=== PATIENT | male | born 1985 | race Caucasian/White ===

== ENCOUNTER 2017-06-05 13:18 | Emergency (ER) | payer OTHER ==
[2017-06-05 13:25] VITALS: BP 120/78; PULSE 81; RESP 20; TEMP 97.8; O2SAT 96
--- NOTE | 2017-06-05 14:06 | C.PDOC ---
History Of Present Illness 31-year-old male, presents to the emergency department with complaints of right sided jaw pain, after patients accidentally slammed the door on his face. Patient notes pain only when he chews his food. Denies nausea/vomiting, bleeding, dry mouth, dizziness, headache, neck pain, or any other associated symptoms. No other complaints at this time. Time Seen by Provider: 06/05/17 13:35 Chief Complaint (Nursing): Medical Clearance History Per: Patient History/Exam Limitations: no limitations Onset/Duration Of Symptoms: Days Past Medical History Reviewed: Historical Data, Nursing Documentation, Vital Signs Vital Signs: Last Vital Signs Temp 97.8 F 06/05/17 13:22 Pulse 81 06/05/17 13:22 Resp 20 06/05/17 13:22 BP 120/78 06/05/17 13:22 Pulse Ox 96 06/05/17 17:37 - Medical History PMH: No Chronic Diseases Family History: States: No Known Family Hx - Social History Hx Alcohol Use: No Hx Substance Use: No Review Of Systems Except As Marked, All Systems Reviewed And Found Negative. Constitutional: Negative for: Fever Cardiovascular: Negative for: Chest Pain Respiratory: Negative for: Shortness of Breath Gastrointestinal: Negative for: Nausea, Vomiting Musculoskeletal: Negative for: Neck Pain, Back Pain Physical Exam - Physical Exam Appears: Non-toxic, No Acute Distress Skin: Warm, Dry, No Rash Head: Atraumatic, Normacephalic, Other (Right TMJ tendernes, mild) Eye(s): bilateral: Normal Inspection, PERRL, EOMI Nose: Normal Oral Mucosa: Moist, No Trismus Tongue: Normal Appearing Lips: Normal Appearing Teeth: Normal Dentition, No Tender To Palpation, No Avulsed Throat: No Erythema, No Exudate Neck: Normal ROM, No Midline Cervical Tenderness, No Paracervical Tenderness, Supple Extremity: Normal ROM, No Tenderness, Capillary Refill (< 2 sec), No Swelling, Other (< 0.5cm superficial abrasion to the lateral left ankle ) Neurological/Psych: Oriented x3, Normal Speech, Normal Motor, Normal Sensation Gait: Steady ED Course And Treatment O2 Sat by Pulse Oximetry: 96 (on RA) Pulse Ox Interpretation: Normal Medical Decision Making Medical Decision Making: Plan: * Motrin * Reassess and Disposition Patient with normal exam, no need for diagnostic testing. On reassessment, patient is resting comfortably, and is in no acute distress. Patient was instructed to follow up with physician/clinic in 1-2 days for further evaluation. Disposition - Disposition Referrals: [facility] [Outside] Disposition: HOME/ ROUTINE Disposition Time: 14:03 Condition: GOOD Additional Instructions: Follow up with the medical doctor within 1-2 days. Return if worsened. Prescriptions: Ibuprofen [Motrin] 600 mg PO TID #21 tab Instructions: Facial Contusion (ED) Forms: Clinical Ink ([employer]) - Clinical Impression Clinical Impression: Facial contusion, Abrasion - Scribe Statement The provider has reviewed the documentation as recorded by the Scribe (Katerine Verdugo) All medical record entries made by the Scribe were at my direction and personally dictated by me. I have reviewed the chart and agree that the record accurately reflects my personal performance of the history, physical exam, medical decision making, and the department course for this patient. I have also personally directed, reviewed, and agree with the discharge instructions and disposition.
== END 2017-06-05 14:42 | disposition home or self-care (01) ==
LOC: C.ER 13:18
DX: S00.83XA Contusion of other part of head, initial encounter (principal); S90.512A Abrasion, left ankle, initial encounter; W22.8XXA Striking against or struck by other objects, initial encounter